=== PATIENT | female | born 1950 | race Caucasian/White ===

== ENCOUNTER → 2023-11-06 15:32 | Outpatient (REF) | payer MEDICARE, SELFPAY | LOC: PAVMRI 15:32 | PROVIDERS: ATTENDING PHYSICIAN Pain Medicine Interventional Pain Medicine; FAMILY PHYSICIAN Internal Medicine | DX: M54.16 Radiculopathy, lumbar region (principal) | CPT/HCPCS: 72148 ==

== ENCOUNTER → 2023-11-14 12:43 | Outpatient (REF) | payer MEDICARE, SELFPAY ==
[2023-11-14 15:35] LABS: ALT (SGPT) 19 U/L (0-35); AST (SGOT) 29 U/L (14-36); Albumin 3.8 g/dl (3.5-5.0); Alkaline Phosphatase 96 U/L (38-126); Blood Urea Nitrogen 12 mg/dl (7-17); Calcium 9.4 mg/dl (8.4-10.2); Carbon Dioxide 30 mmol/L (22-30); Chloride 104 mmol/L (98-107); Glucose 101 mg/dl (70-99); HDL Cholesterol 67 mg/dl; LDL Cholesterol, Calculated 46 mg/dl; Potassium 4.6 mmol/L (3.5-5.1); Sodium 138 mmol/L (135-145); Total Bilirubin 0.5 mg/dl (0.2-1.3); Total Cholesterol 162 mg/dl (50-199); Total Protein 6.1 g/dl (6.3-8.2); Triglyceride 247 mg/dl (10-149); Very Low Density Lipoprotein 49 mg/dl (0-30); eGFR > 60.00
[2023-11-15 09:39] LABS: Glycohemoglobin (HgbA1c) 5.7 % (4.0-5.6)
== END ==
LOC: HWLAB 12:43
PROVIDERS: ATTENDING PHYSICIAN Internal Medicine
DX: E78.5 Hyperlipidemia, unspecified (principal); R73.01 Impaired fasting glucose
CPT/HCPCS: 36415; 80053; 80061; 83036

== ENCOUNTER → 2024-01-17 13:20 | Outpatient (REF) | payer MEDICARE, SELFPAY | LOC: HWCARD 13:20 | PROVIDERS: ATTENDING PHYSICIAN Pain Medicine Interventional Pain Medicine; FAMILY PHYSICIAN Internal Medicine | DX: Z01.818 Encounter for other preprocedural examination (principal) | CPT/HCPCS: 93005 ==

== ENCOUNTER 2024-03-24 09:49 | Inpatient (IN) | payer MEDICARE, SELFPAY ==
[2024-02-28 13:32] VITALS: BMI 31.8
[2024-02-28 14:41] LABS: Hematocrit 38.4 % (37.0-47.0); Hemoglobin 12.7 g/dL (12.0-16.0); Mean Corp Hgb Conc. 33.1 g/dL (33.0-37.0); Mean Corpuscular Hgb 31.1 pg (27.0-31.0); Mean Corpuscular Volume 93.9 fL (81.0-99.0); Mean Platelet Volume 9.7 fL (7.4-10.4); Platelet Count 290 10^3/uL (130-400); Red Blood Cell Count 4.09 10^6/uL (4.20-5.40); Red Cell Dist. Width 14.4 % (11.5-14.5); White Blood Cell Count 6.7 10^3/uL (4.8-10.8)
[2024-02-28 15:08] LABS: ALT (SGPT) 17 U/L (0-35); AST (SGOT) 25 U/L (14-36); Albumin 4.1 g/dl (3.5-5.0); Alkaline Phosphatase 98 U/L (38-126); Blood Urea Nitrogen 16 mg/dl (7-17); Calcium 9.5 mg/dl (8.4-10.2); Carbon Dioxide 23 mmol/L (22-30); Chloride 103 mmol/L (98-107); Estimated Creatinine Clearance 54 ml/min; Glucose 75 mg/dl (70-99); Potassium 4.7 mmol/L (3.5-5.1); Sodium 139 mmol/L (135-145); Total Bilirubin 0.4 mg/dl (0.2-1.3); Total Protein 6.4 g/dl (6.3-8.2); eGFR > 60.00
[2024-02-29 08:50] LABS: Glycohemoglobin (HgbA1c) 5.8 % (4.0-5.6)
[2024-03-18 10:09] VITALS: BMI 31.8
[2024-03-18 10:31] VITALS: BMI 31.8
[2024-03-24] VITALS (13 sets, daily range): BP systolic 107–146; BP diastolic 59–89; PULSE 86; O2SAT 99
--- NOTE | 2024-03-24 08:00 | W.PN.ORTHO ---
Today's Communication / Plan
-
D/c when clinically stable.
Assessment
.
Distal Motor Intact: Yes
Dressing:
Small area of incisional bleeding towards center of dressing.
Assessment:
L hip OA s/p Ru SPARROW w/ Dr Caballero 03/24/24
- s/p R TSA, 06/2018, by Dr Dorantes
DVT prophylaxis - ASA, b/l venous foot pumps
Post-op nausea - continue anti-emetics as needed
HTN - + parameters - monitor BP
RBBB, PACs - monitor on tele
GERD and Hiatal hernia - continue PPI therapy BID
Peripheral neuropathy - consider Gabapentin or Lyrica
HLD
Schatzki�s ring w/ associated dysphagia
Diverticulosis w/ -itis 2021
Nephrolithiasis
Fatty liver disease
Old lacunar infarct of the right external capsule on head CT 09/2021
Chronic back pain 2* lumbar DDD/stenosis
H/o recurrent UTIs
Gout
Osteopenia
Anxiety
Depression
Prediabetes, A1c 5.8
Obesity, BMI 31.8
Daily alcohol, 1 drink reported daily
Cannabis dependence �
Has prophylactic Cefadroxil upon d/c
Plan
.
Surgery / Date: Ru SPARROW w/ Dr Caballero 03/24/24
DVT Prophylaxis: Aspirin
Activity:
Out of bed.
PT/OT
Discharge Plan: Home w/ VN
Subjective
.
.:
Patient resting comfortably in PACU.
L hip pain minimal and currently well tolerated.
Mild nausea - given IV Zofran.
Vital Signs and Labs
.
Vital Signs and Labs:
Lab Results
02/28/24 13:14
02/28/24 13:14
Physical Exam
-
HEENT: No pallor, cyanosis, or jaundice. Throat clear.
NECK: Supple. No JVD.
RESPIRATORY: Lungs clear to auscultation.
CVS: S1, S2 normal. RRR.�
ABDOMEN: Soft, non-tender. No distension. Obese.
EXTREMITIES: Strength equal, no calf pain with palpation/dorsiflexion. Calves soft.
JOB ESTIMATOR: AOx3. No focal deficits. talent acquisition coordinator grossly intact
[2024-03-24] MEDS: TYLENOL 650 MG PO ×3 (10:18→19:49)
[2024-03-24] MEDS: CELEBREX 200 MG PO (10:18)
[2024-03-24] MEDS: NORMOSOL-R/PLASMALYTE-A 1000 IV (14:34)
[2024-03-24] MEDS: ZOFRAN 4 MG IV (14:57)
[2024-03-24] MEDS: ROXICODONE 5 MG PO ×2 (15:19→17:40)
--- NOTE | 2024-03-24 16:15 | PTCARENOTE ---
Patient admitted from [facility] post left total hip replacement.The patient rates her pain at a 5 -6 out of 10.Neurovascular assessment is within normal limits and ongoing.Vital signs are stable.The left hip dressing has a small to moderate amount of
drainage on it.The patient is in her bed with the call sena in reach.
[2024-03-24] MEDS: ZYLOPRIM 300 MG PO (17:36)
[2024-03-24] MEDS: ASPIRIN 325 MG PO (17:36)
[2024-03-24] MEDS: FLORASTOR 250 MG PO (17:36)
[2024-03-24] MEDS: TYLENOL PO (17:37)
[2024-03-24] MEDS: VITAMIN B-12 1000 MCG PO (17:37)
[2024-03-24] MEDS: VITAMIN D3 (cholecalciferol) 125 MCG PO (17:37)
[2024-03-24] MEDS: LEXAPRO 10 MG PO (17:38)
[2024-03-24] MEDS: TOPROL XL 25 MG PO (17:38)
[2024-03-24] MEDS: DILAUDID 0.5 MG IV (19:48)
[2024-03-24] MEDS: PROTONIX 20 MG PO (19:49)
[2024-03-24] MEDS: ANCEF 5 IV (19:50)
[2024-03-24] MEDS: DECADRON 4 MG PO (19:50)
[2024-03-24] MEDS: COLACE 100 MG PO (19:52)
[2024-03-24] MEDS: SENOKOT PO (19:52)
[2024-03-24] MEDS: CRESTOR 10 MG PO (22:24)
[2024-03-24] MEDS: ROXICODONE 10 MG PO (22:24)
[2024-03-24] MEDS: BACTROBAN NASAL 1 GRAM NASAL (22:25)
[2024-03-24] MEDS: BACTROBAN 2% OINTMENT 1 APPLIC NASAL (22:26)
[2024-03-25] MEDS: TYLENOL PO (00:47)
[2024-03-25] MEDS: ROXICODONE 10 MG PO ×2 (02:36→08:02)
[2024-03-25 03:02] VITALS: BP 123/69
[2024-03-25] MEDS: ANCEF 5 IV (05:24)
[2024-03-25] MEDS: TYLENOL 650 MG PO ×2 (05:25→08:00)
[2024-03-25] MEDS: ASPIRIN 325 MG PO (07:58)
[2024-03-25] MEDS: PROTONIX 20 MG PO (07:58)
[2024-03-25] MEDS: SENOKOT 17.2 MG PO (07:58)
[2024-03-25] MEDS: CELEBREX 200 MG PO (07:58)
[2024-03-25] MEDS: FLORASTOR 250 MG PO (07:58)
[2024-03-25] MEDS: BACTROBAN 2% OINTMENT NASAL (07:59)
[2024-03-25] MEDS: ZYLOPRIM 300 MG PO (07:59)
[2024-03-25] MEDS: VITAMIN B-12 1000 MCG PO (08:00)
[2024-03-25] MEDS: COLACE 100 MG PO (08:00)
[2024-03-25] MEDS: DECADRON 4 MG PO (08:00)
[2024-03-25] MEDS: VITAMIN D3 (cholecalciferol) 125 MCG PO (08:01)
[2024-03-25] MEDS: TOPROL XL 25 MG PO (08:01)
[2024-03-25 08:07] VITALS: BP 123/69
[2024-03-25] MEDS: LIDOCAINE 4% PATCH 2 PATCH TOPICAL (09:08)
[2024-03-25] MEDS: FLEXERIL 10 MG PO (09:08)
--- NOTE | 2024-03-25 09:28 | W.PN.ORTHO ---
Today's Communication / Plan
-
Await PT and OT recs.
D/c later today if remaining clinically stable.
Assessment
.
Distal Motor Intact: Yes
Dressing:
Small areas of old incisional bleeding. Dressing changed and now C/D/I.
Assessment:
L hip OA s/p L ANDREWS w/ Dr Caballero 03/24/24
- s/p R TSA, 06/2018, by Dr Dorantes
DVT prophylaxis - ASA, b/l venous foot pumps
Post-op nausea - improved w/ Zofran x1 - has Zofran to be used upon d/c
HTN - + parameters - BPs stable
RBBB, PACs - rhythm stable on tele (NSR w/ RBBB)
GERD and Hiatal hernia - continue PPI therapy BID
Peripheral neuropathy - consider Gabapentin or Lyrica
HLD
Schatzki�s ring w/ associated dysphagia
Diverticulosis w/ -itis 2021
Nephrolithiasis
Fatty liver disease
Old lacunar infarct of the right external capsule on head CT 09/2021
Chronic back pain 2* lumbar DDD/stenosis
H/o recurrent UTIs
Gout
Osteopenia
Anxiety
Depression
Prediabetes, A1c 5.8
Obesity, BMI 31.8
Daily alcohol, 1 drink reported daily
Cannabis dependence �
Has prophylactic Cefadroxil upon d/c
Plan
.
Surgery / Date: Ru SPARROW w/ Dr Caballero 03/24/24
DVT Prophylaxis: Aspirin
Activity:
Out of bed.
PT/OT
Discharge Plan: Home w/ VN
Subjective
.
.:
Patient appearing to rest comfortably in her chair this morning.
Reports exacerbations of L hip pain overnight - pain meds adjusted.
Denies any other new significant complaints.
Eager for potential d/c today.
Vital Signs and Labs
.
Vital Signs and Labs:
Lab Results
02/28/24 13:14
02/28/24 13:14
Temp Pulse Resp BP Pulse Ox
98.6 F 87 18 123/69 96
03/25/24 08:07 03/25/24 08:07 03/25/24 08:07 03/25/24 08:07 03/25/24 08:07
Non-invasive Hgb result: 10.3
Physical Exam
-
HEENT: No pallor, cyanosis, or jaundice. Throat clear.
NECK: Supple. No JVD.
RESPIRATORY: Lungs clear to auscultation.
CVS: S1, S2 normal. RRR.�
ABDOMEN: Soft, non-tender. No distension. Obese.
EXTREMITIES: Strength equal, no calf pain with palpation/dorsiflexion. Calves soft.
SENIOR ACCOUNTING SPECIALIST: AOx3. No focal deficits. furnace mechanic grossly intact
[2024-03-25 09:55] VITALS: BP 122/66; BP 126/71; PULSE 87; O2SAT 96
--- NOTE | 2024-03-25 10:27 | W.DS.TRANS ---
DC Summary - Party Demonstrator
-
Discharge Instructions:
Sleep Apnea Risk Intermediate
Discharge Diagnosis/Procedures L hip OA s/p L ANDREWS w/ Dr Caballero 03/24/24
Diet Regular
Activity As tolerated,With Walker
Driving Restrictions Not until seen by your Dr
Bathing Restrictions OK to Shower
Other Services PT,VN
Wound Care Dressing to be removed 1 week post-surgery.
Instructions:
Stand-Alone Forms: Total Hip/Knee Replacement D/C
Changes to Home Medications: Yes
Discharge Medications:
DC Medications w/original date entered in [facility]
ascorbic acid (vitamin C) 500 mg tablet (Vitamin C) 500 mg PO BID Supplement 06/15/11
cranberry ocrj-Q-salryihh coag 450 mg-30 mg-50 million cell tablet (Lilwhonxz-Kavmvkbwa-Kimqppu C) 1 ea PO QPM Supplement 06/15/11
omeprazole 20 mg capsule,delayed release 20 mg PO BID GERD 02/16/17
escitalopram oxalate 10 mg tablet 10 mg PO QPM Mental Health/Anxiety 06/10/18
allopurinol 100 mg tablet 300 mg PO DAILY Gout 06/25/20
cyanocobalamin (vitamin B-12) 1,000 mcg tablet 1,000 mcg PO DAILY Supplement 06/25/20
cholecalciferol (vitamin D3) 125 mcg (5,000 unit) tablet (Vitamin D3) 125 mcg PO DAILY Supplement 03/18/24
metoprolol succinate 25 mg tablet,extended release 24 hr 25 mg PO DAILY Heart Disease/Condition 03/18/24
multivitamin 1 tab PO DAILY Supplement 03/18/24
mupirocin 2 % topical ointment 1 applic topical BID PROPHYLAXIS 03/18/24
rosuvastatin 10 mg tablet 10 mg PO HS High Cholesterol 03/18/24
sour banerjee extract 1,000 mg capsule (Tart Banerjee Extract) 2,000 mg PO DAILY Supplement 03/18/24
Saccharomyces boulardii 250 mg capsule 250 mg PO BID #14 caps 03/25/24
acetaminophen 500 mg tablet 1,000 mg (2 x 500 mg) PO Q6H #30 tabs 03/25/24
aspirin 325 mg tablet 325 mg PO DAILY #30 tabs 03/25/24
cefadroxil 500 mg capsule 500 mg PO BID #14 caps 03/25/24
celecoxib 100 mg capsule (Celebrex) 100 mg PO BID #30 caps 03/25/24
cyclobenzaprine 10 mg tablet 10 mg PO BID PRN Muscle Spasms #1 tab 03/25/24
dexamethasone 4 mg tablet 4 mg PO Q12H Anti-inflammatory #7 tabs 03/25/24
diphenhydramine HCl 25 mg capsule (Banophen) 25 mg PO HS PRN insomnia #0 caps 03/25/24
docusate sodium 100 mg capsule 100 mg PO BID #30 caps 03/25/24
lidocaine 4 % topical patch 2 patch topical DAILY #30 ea 03/25/24
lisinopril 5 mg tablet 5 mg PO DAILY PRN high blood pressure #1 tab 03/25/24
ondansetron HCl 4 mg tablet 4 mg PO Q6H PRN nausea and vomiting #30 tabs 03/25/24
oxycodone 5 mg tablet 5 - 10 mg (1 - 2 x 5 mg) PO Q6H PRN moderate-severe pain #30 tabs 03/25/24
sennosides 8.6 mg tablet (Senna Laxative) 17.2 mg (2 x 8.6 mg) PO BID #30 tabs 03/25/24
Home Medication Changes
Saccharomyces boulardii 250 mg capsule 250 mg PO BID #14 caps 03/25/24
acetaminophen 500 mg tablet 1,000 mg (2 x 500 mg) PO Q6H #30 tabs 03/25/24
aspirin 325 mg tablet 325 mg PO DAILY #30 tabs 03/25/24
cefadroxil 500 mg capsule 500 mg PO BID #14 caps 03/25/24
celecoxib 100 mg capsule (Celebrex) 100 mg PO BID #30 caps 03/25/24
cyclobenzaprine 10 mg tablet 10 mg PO BID PRN Muscle Spasms #1 tab 03/25/24
dexamethasone 4 mg tablet 4 mg PO Q12H Anti-inflammatory #7 tabs 03/25/24
docusate sodium 100 mg capsule 100 mg PO BID #30 caps 03/25/24
lidocaine 4 % topical patch 2 patch topical DAILY #30 ea 03/25/24
ondansetron HCl 4 mg tablet 4 mg PO Q6H PRN nausea and vomiting #30 tabs 03/25/24
oxycodone 5 mg tablet 5 - 10 mg (1 - 2 x 5 mg) PO Q6H PRN moderate-severe pain #30 tabs 03/25/24
sennosides 8.6 mg tablet (Senna Laxative) 17.2 mg (2 x 8.6 mg) PO BID #30 tabs 03/25/24
Pending Results: No
[2024-03-25 10:54] VITALS: BP 116/60; BP 124/68; PULSE 88; O2SAT 97
--- NOTE | 2024-03-25 11:04 | CM ---
Met with pt at bedside
pt reports she lives alone in a 2 story cottage; 3 steps to enter, FF set-up
Independent, active prior to admission
DME - rolling walker, cane, shower chair, raised toilet seat, toilet rails
SNF - no past hx
HH - [facility] in past
Has ride home with family member
PCP -Izabel Solis
Pharm - [facility]
PT recs - HH. Discussed with pt. Prefers [facility]. Referral sent in [facility]
Discussed IMM
Plan - home with [facility]
f - [phone]
[2024-03-25 11:10] VITALS: BP 123/66
== END 2024-03-25 12:44 | disposition home health service (06) | DRG 470 ==
LOC: 2 SOUTH 09:49
PROVIDERS: ADMITTING PHYSICIAN Specialist; FAMILY PHYSICIAN Internal Medicine
PROC: 0SRB0JA Replacement of Left Hip Joint with Synthetic Substitute, Uncemented, Open Approach (ICD-10-PCS; 2024-03-24)
DX: M16.12 Unilateral primary osteoarthritis, left hip (principal); E66.9 Obesity, unspecified; Z68.32 Body mass index [BMI] 32.0-32.9, adult; I10 Essential (primary) hypertension; I49.1 Atrial premature depolarization; I45.10 Unspecified right bundle-branch block; F12.20 Cannabis dependence, uncomplicated
CPT/HCPCS: 36415; 73502; 80053; 83036; 85027; 87070; 97110; 97116; 97162; 97166; 97535; C1713; C1776

== ENCOUNTER → 2024-08-07 09:40 | Outpatient (REF) | payer MEDICARE, SELFPAY ==
[2024-08-07 15:29] LABS: Urine Albumin Negative (Neg - Trace); Urine Bilirubin Negative (Negative); Urine Character Clear (Clear); Urine Color Yellow; Urine Glucose Negative (Negative); Urine Ketone Negative (Negative); Urine Leukocyte 1+ (Negative); Urine Nitrite Negative (Negative); Urine Occult Blood Negative (Negative); Urine Urobilinogen Negative (Neg - 1+)
[2024-08-07 15:41] LABS: Urine Squamous Cell 0-2 /LPF (Few)
[2024-08-07 15:42] LABS: Urine Bacteria Moderate (Negative); Urine Red Blood Cell 0-2 /HPF (0-2)
== END ==
LOC: HWLAB 09:40
PROVIDERS: ATTENDING PHYSICIAN Internal Medicine
DX: Z87.440 Personal history of urinary (tract) infections (principal); N39.0 Urinary tract infection, site not specified
CPT/HCPCS: 81003; 81015; 87086

== ENCOUNTER → 2024-08-14 13:20 | Outpatient (REF) | payer MEDICARE, SELFPAY ==
[2024-08-14 16:49] LABS: Urine Albumin 2+ (Neg - Trace); Urine Bilirubin Negative (Negative); Urine Character Clear (Clear); Urine Color Yellow; Urine Glucose Negative (Negative); Urine Ketone Negative (Negative); Urine Leukocyte 2+ (Negative); Urine Nitrite Negative (Negative); Urine Occult Blood Negative (Negative); Urine Urobilinogen 1+ (Neg - 1+)
[2024-08-14 16:59] LABS: Urine Hyaline Cast >15 /LPF (0-2); Urine Red Blood Cell 0-2 /HPF (0-2)
[2024-08-14 17:00] LABS: Urine Bacteria Moderate (Negative); Urine Mucus Few
== END ==
LOC: HWLAB 13:20
PROVIDERS: ATTENDING PHYSICIAN Internal Medicine
DX: R82.90 Unspecified abnormal findings in urine (principal)
CPT/HCPCS: 81003; 81015; 87077; 87086; 87186

== ENCOUNTER → 2024-08-22 12:46 | Outpatient (REF) | payer MEDICARE, SELFPAY ==
[2024-08-22 16:43] LABS: Urine Albumin 1+ (Neg - Trace); Urine Bilirubin Negative (Negative); Urine Character Clear (Clear); Urine Color Yellow; Urine Glucose Negative (Negative); Urine Ketone Negative (Negative); Urine Leukocyte 1+ (Negative); Urine Nitrite Negative (Negative); Urine Occult Blood Negative (Negative); Urine Urobilinogen Negative (Neg - 1+)
[2024-08-22 16:49] LABS: Urine Red Blood Cell 0-2 /HPF (0-2)
[2024-08-22 16:50] LABS: Urine Bacteria Few (Negative)
== END ==
LOC: HWLAB 12:46
PROVIDERS: ATTENDING PHYSICIAN Internal Medicine
DX: R82.90 Unspecified abnormal findings in urine (principal)
CPT/HCPCS: 81003; 81015

== ENCOUNTER 2024-08-25 08:52 | Day surgery (SDC) | payer MEDICARE, SELFPAY ==
[2024-08-04 13:59] LABS: % Basophils 0.6 % (0-2); % Eosinophils 1.3 % (0-6); % Immature Granulocytes 0.3 % (0-0.5); % Lymphocytes 37.5 % (20.5-51.1); % Monocytes 8.2 % (1.7-9.3); % Neutrophils 52.1 % (42.2-75.2); Absolute Eosinophils 0.1 10^3/uL (0-0.7); Absolute Lymphocytes 2.6 10^3/uL (1.2-3.4); Absolute Monocytes 0.6 10^3/uL (0.1-0.6); Absolute Neutrophils 3.7 10^3/uL (1.4-6.5); Hematocrit 41.7 % (37.0-47.0); Hemoglobin 13.3 g/dL (12.0-16.0); Mean Corp Hgb Conc. 31.9 g/dL (33.0-37.0); Mean Corpuscular Hgb 29.7 pg (27.0-31.0); Mean Corpuscular Volume 93.1 fL (81.0-99.0); Mean Platelet Volume 9.5 fL (7.4-10.4); Nucleated Red Blood Cells % 0 %; Platelet Count 253 10^3/uL (130-400); Red Blood Cell Count 4.48 10^6/uL (4.20-5.40); Red Cell Dist. Width 15.1 % (11.5-14.5)
[2024-08-04 14:20] VITALS: BMI 30.3
[2024-08-04 14:39] LABS: ALT (SGPT) 28 U/L (0-35); AST (SGOT) 40 U/L (14-36); Albumin 4.1 g/dl (3.5-5.0); Alkaline Phosphatase 97 U/L (38-126); Blood Urea Nitrogen 17 mg/dl (7-17); Calcium 9.9 mg/dl (8.4-10.2); Carbon Dioxide 29 mmol/L (22-30); Chloride 102 mmol/L (98-107); Estimated Creatinine Clearance 52 ml/min; Glucose 76 mg/dl (70-99); Potassium 4.1 mmol/L (3.5-5.1); Sodium 137 mmol/L (135-145); Total Bilirubin 0.5 mg/dl (0.2-1.3); Total Protein 6.5 g/dl (6.3-8.2); Uric Acid 1.6 mg/dl (2.5-6.2); eGFR > 60.00
[2024-08-04 15:18] VITALS: BMI 30.3
--- NOTE | 2024-08-04 15:44 | HPS.HSE ---
Family Physician
-
Family Physician: Izabel Slois
Chief Complaint
-
Advanced primary osteoarthritis of the right hip.
History of Present Illness
The patient is a 74-year-old female presenting today for advanced primary osteoarthritis of the right hip. The patient previously underwent an uncomplicated left total hip arthroplasty in February [address] Rick Caballero. She returns to
[facility] today with complaints of significant right hip pain associated with her osteoarthritis. She notes that her current right hip pain is greatly interfering with her activities of daily living and is overall impacting her quality of
life. She has tried and failed multiple conservative treatment measures in the past for her right hip pain. These conservative treatment measures include physical therapy, activity modification, self-directed therapeutic exercises, corticosteroid
injections, medical management with Tylenol, NSAIDs, and [place] as needed, and the application of ice and/or heat. Recent x-ray findings of the right hip demonstrated advanced osteoarthritis with flattening of the femoral head and significant
narrowing of the inner joint space. She was determined to be in need of a right total hip arthroplasty. She denies any current complaints today such as chest pain, shortness of breath, palpitations, nausea, vomiting, diarrhea, lightheadedness,
dizziness, cough, sore throat, or fever.
Medical History
Past Medical History
Past Medical History: Reports Other
Additional Past Medical History:
1. Osteoarthritis, status post left total hip arthroplasty, 02/2024, by Dr. Rick Caballero.
2. Hypertension.
3. Hyperlipidemia.
4. Right bundle branch block.
5. PACs, asymptomatic.
6. GERD.
7. Hiatal hernia.
8. Schatzki�s ring with associated dysphagia.
9. Diverticulosis w/ diverticulosis 2021.
10. Nephrolithiasis.
11. Fatty liver disease.
12. Old lacunar infarct of the right external capsule on head CT 09/2021.
13. Peripheral neuropathy.
14. Chronic back pain secondary to lumbar degenerative disc disease and stenosis.
15. History of recurrent UTIs.
16. Gout.
17. Osteopenia.
18. Anxiety.
19. Depression.
20. Insomnia.
21. Strep throat, 07/31/2024, improved with antibiotic therapy.
22. Prediabetes, A1c 5.7.
23. Obesity, BMI 30.3.
24. History of tobacco abuse.
25. Daily alcohol.
26. Cannabis dependence.
Past Surgical History: Reports Other
Additional Past Surgical History:
1. Left total hip arthroplasty, 02/2024, by Dr. Rick Caballero.
2. Right total shoulder arthroplasty, 06/2018, by Dr. Tanner Dorantes.
3. Right knee ACL and MCL repair.
4. Left thumb [facility] surgery.
5. Right great toe joint replacement.
6. Left great toe surgery.
7. Hysterectomy.
8. Tubal ligation.
9. D&C.
10. .
11. Tonsillectomy.
12. [place] teeth extraction.
13. LASIK eye surgery.
14. Bilateral cataract extraction.
15. Colonoscopy.
Social History
Tobacco: Former Smoker
Alcohol: Daily (She reports 1 alcoholic beverage per day. )
Drug: Marijuana
Personal:
Living: Alone (in a 2 story home. She has a first floor main setup. Her son will be helping her post-surgery. She plans on doing outpatient PT at [facility]. Her first appointment is the after her surgery. )
Family History
Family History: Not pertinent
Allergies / Home Medications
Allergy/Medication List:
Home medications:
1. Allopurinol 300 mg p.o. daily.
2. Ascorbic acid 500 mg p.o. twice a day.
3. Cholecalciferol 125 mcg p.o. daily.
4. Anwytbpkp-njqictufi-zvojkuq C 1 dose p.o. every evening.
5. Cyanocobalamin 1000 mcg p.o. daily.
6. Diphenhydramine HCl 25 mg p.o. at bedtime as needed.
7. Escitalopram 20 mg p.o. every evening.
8. Hydrocodone-Acetaminophen 5-325 mg, 1 tablet p.o. every 6 hours as needed.
9. Metoprolol Succinate 25 mg p.o. daily.
10. Multivitamin 1 tablet p.o. daily.
11. Naproxen 250 mg p.o. twice a day.
12. Omeprazole 20 mg p.o. twice a day.
13. Rosuvastatin 10 mg p.o. at bedtime.
14. Tart zafar extract 2000 mg p.o. daily.
Allergies: Augmentin. Thimerosal. [place] needles.
Review of Systems
-
A 12 point ROS was completed and negative except as noted: Yes
Physical Exam
Vital Signs
Blood pressure 125/57. Heart rate 69. Respirations 18. Pulse ox 100% on room air.
Height 5 feet, 1 inch. Weight 72.7 kg. BMI 30.3.
Physical Exam
General: Well Developed, Well Nourished and No Apparent Distress
HEENT: NormoCephalic, Moist mucous membranes and Atraumatic
Respiratory: Clear
Cardiac: Regular Rhythm
GI: Soft, Non Tender, Non Distended and Other (Obese. )
Musculoskeletal: Other (Right hip: Pain with internal rotation to 20 degrees, no significant pain with external rotation to 20 degrees, abduction to 30 degrees, and flexion to 110 degrees.)
Skin: Warm and Dry
Neuro: AO x 3 and Nonfocal/grossly intact
Laboratory Results
-
08/04/24 12:51
08/04/24 12:51
Laboratory Results
Total Bilirubin 0.5 mg/dl (0.2-1.3) 08/04/24 12:51
AST 40 U/L (14-36) H 08/04/24 12:51
ALT 28 U/L (0-35) 08/04/24 12:51
Alkaline Phosphatase 97 U/L (38-126) 08/04/24 12:51
Hemoglobin A1c 5.7.
MRSA screen negative.
Urinalysis with reflex urine culture 08/14/2024 pending.
EKG 08/04/2024: Normal sinus rhythm. Possible left atrial enlargement. Right bundle branch block.
Impression/Plan
-
CLEARANCES:
1. Primary medical, Dr. Maricel Solis, cleared pending repeat urinalysis 08/14/2024.
Primary medical phone number: [phone].
2. Dental, Dr. Helena Feliz, pending.
IMPRESSION/PLAN:
1. Advanced primary osteoarthritis of the right hip in need of a right total hip arthroplasty with Dr. Rick Caballero on 08/25/2024. The benefits and risks of the procedure have been explained to the patient. The patient understands these risks and
wishes to proceed.
2. DVT prophylaxis: Aspirin with bilateral venous compression devices.
3. Pain management: The patient prefers Oxycodone as needed for moderate-severe post-operative pain. We will also include Tylenol, Celebrex, Decadron, Lidocaine patches, and her home Cyclobenzaprine twice a day as needed. This pain regimen
reportedly worked well after her prior left total hip arthroplasty.
4. Early discharge: Given her stable comorbidities and recent previous left total hip arthroplasty without significant complications, the patient would be an ideal candidate for early discharge on 08/26/2024.
Patient's phone number: [phone].
Patient's contact (Ottoniel Hutton - Son): [phone].
[2024-08-05 10:51] LABS: Glycohemoglobin (HgbA1c) 5.7 % (4.0-5.6)
--- NOTE | 2024-08-22 11:52 | W.PN.UPDATE ---
Update Note
Progress Note Update
The patient was diagnosed with a UTI earlier this week through a UA w/ culture ordered per PCP.
Pt at that time reported urinary urgency with irritation.
PCP had Rx Levaquin to be taken daily for 3 days. Last dose was today. Pt did note an overall improvement in her symptoms w/ abx therapy.
Per PCP, a repeat UA prior to surgery would be nice but was not mandatory.
A script was sent over to lab. Pt will try and get this done this afternoon.
Given the upcoming weekend, we will attempt to look out for results the morning of her procedure.
Can proceed as planned.
[2024-08-25] VITALS (21 sets, daily range): BP systolic 83–125; BP diastolic 51–74; PULSE 68–69; O2SAT 95–97
[2024-08-25] MEDS: TYLENOL 650 MG PO ×3 (09:15→23:06)
[2024-08-25] MEDS: BACTROBAN NASAL 1 GRAM NASAL (09:15)
[2024-08-25] MEDS: CELEBREX 200 MG PO (09:15)
[2024-08-25] MEDS: NORMOSOL-R/PLASMALYTE-A 1000 IV ×2 (09:30→14:07)
--- NOTE | 2024-08-25 13:07 | W.DS.TRANS ---
DC Summary - K9 Handler
-
Discharge Instructions:
Sleep Apnea Risk Low
Discharge Diagnosis/Procedures R ANDREWS 08/25/24
Diet As tolerated
Activity With Walker
Driving Restrictions No driving
Bathing Restrictions OK to Shower
Instructions:
Stand-Alone Forms: Total Hip/Knee Replacement D/C
Changes to Home Medications: Yes
Discharge Medications:
DC Medications w/original date entered in [facility]
ascorbic acid (vitamin C) 500 mg tablet (Vitamin C) 500 mg PO BID Supplement 06/15/11
cranberry ksnk-J-vuyyijju coag 450 mg-30 mg-50 million cell tablet (Lpubkizsq-Zwejudeun-Lqbslni C) 1 ea PO QPM Supplement 06/15/11
omeprazole 20 mg capsule,delayed release 20 mg PO BID GERD 02/16/17
escitalopram oxalate 10 mg tablet 20 mg PO QPM Mental Health/Anxiety 06/10/18
allopurinol 100 mg tablet 300 mg PO DAILY Gout 06/25/20
cyanocobalamin (vitamin B-12) 1,000 mcg tablet 1,000 mcg PO DAILY Supplement 06/25/20
cholecalciferol (vitamin D3) 125 mcg (5,000 unit) tablet (Vitamin D3) 125 mcg PO DAILY Supplement 03/18/24
metoprolol succinate 25 mg tablet,extended release 24 hr 25 mg PO DAILY Heart Disease/Condition 03/18/24
multivitamin 1 tab PO DAILY Supplement 03/18/24
rosuvastatin 10 mg tablet 10 mg PO HS High Cholesterol 03/18/24
sour banerjee extract 1,000 mg capsule (Tart Banerjee Extract) 2,000 mg PO DAILY Supplement 03/18/24
cyclobenzaprine 10 mg tablet 10 mg PO BID PRN Muscle Spasms #1 tab 03/25/24
diphenhydramine HCl 25 mg capsule (Banophen) 25 mg PO HS PRN insomnia #0 caps 03/25/24
mupirocin 2 % topical ointment 1 applic intranasal BID #1 tube 08/04/24
acetaminophen 325 mg tablet (Tylenol) 650 mg (2 x 325 mg) PO QID #1 tab 08/25/24
aspirin 325 mg tablet 325 mg PO DAILY blood clot prevention #1 tab 08/25/24
celecoxib 200 mg capsule 200 mg PO DAILY Anti-inflammatory #14 caps 08/25/24
dexamethasone 4 mg tablet 4 mg PO BID inflammation #6 tabs 08/25/24
docusate sodium 100 mg capsule (Colace) 100 mg PO BID stool softner #1 cap 08/25/24
gabapentin 300 mg capsule 300 mg PO HS sleep/pain #10 caps 08/25/24
magnesium hydroxide 400 mg/5 mL oral suspension (Milk of Magnesia) 30 ml PO HS PRN Constipation #1 mL 08/25/24
ondansetron 4 mg disintegrating tablet 4 mg PO Q6H PRN n/v #20 tabs 08/25/24
oxycodone 5 mg tablet 5 mg PO Q6H PRN 1 tab moderate pain, 2 tabs severe pain #30 tabs 08/25/24
sennosides 8.6 mg tablet (Senokot) 17.2 mg (2 x 8.6 mg) PO BID laxative #2 tabs 08/25/24
Home Medication Changes
mupirocin 2 % topical ointment 1 applic intranasal BID #1 tube 08/04/24
acetaminophen 325 mg tablet (Tylenol) 650 mg (2 x 325 mg) PO QID #1 tab 08/25/24
aspirin 325 mg tablet 325 mg PO DAILY blood clot prevention #1 tab 08/25/24
celecoxib 200 mg capsule 200 mg PO DAILY Anti-inflammatory #14 caps 08/25/24
dexamethasone 4 mg tablet 4 mg PO BID inflammation #6 tabs 08/25/24
docusate sodium 100 mg capsule (Colace) 100 mg PO BID stool softner #1 cap 08/25/24
gabapentin 300 mg capsule 300 mg PO HS sleep/pain #10 caps 08/25/24
magnesium hydroxide 400 mg/5 mL oral suspension (Milk of Magnesia) 30 ml PO HS PRN Constipation #1 mL 08/25/24
ondansetron 4 mg disintegrating tablet 4 mg PO Q6H PRN n/v #20 tabs 08/25/24
oxycodone 5 mg tablet 5 mg PO Q6H PRN 1 tab moderate pain, 2 tabs severe pain #30 tabs 08/25/24
sennosides 8.6 mg tablet (Senokot) 17.2 mg (2 x 8.6 mg) PO BID laxative #2 tabs 08/25/24
Pending Results: No
--- NOTE | 2024-08-25 14:39 | CM ---
Rcd call from [facility]
Referral made pre-operatively - requesting updated clinicals, PT/OT evals when available
[2024-08-25] MEDS: ROXICODONE 5 MG PO ×2 (15:31→20:09)
[2024-08-25] MEDS: TYLENOL PO (19:31)
--- NOTE | 2024-08-25 19:46 | PTCARENOTE ---
Received patient from pacu around 1730 via bed in stable condition. Dressing to Right hip with scant bloody drainage. +sensation +movement to rle. Patient oriented to room. Call sena in reach.
[2024-08-25] MEDS: COLACE 100 MG PO (19:58)
[2024-08-25] MEDS: ASPIRIN 325 MG PO (19:58)
[2024-08-25] MEDS: PROTONIX 40 MG PO (19:58)
[2024-08-25] MEDS: SENOKOT 17.2 MG PO (19:58)
[2024-08-25] MEDS: LEXAPRO 20 MG PO (19:59)
[2024-08-25] MEDS: ANCEF 5 IV (19:59)
[2024-08-25] MEDS: BACTROBAN 2% OINTMENT 1 APPLIC NASAL (20:03)
[2024-08-25] MEDS: NEURONTIN 300 MG PO (22:34)
[2024-08-25] MEDS: CRESTOR 10 MG PO (22:34)
[2024-08-25] MEDS: BENADRYL 25 MG PO (22:34)
[2024-08-25] MEDS: TORADOL 15 MG IV (22:35)
[2024-08-25] MEDS: DECADRON 4 MG IV (22:38)
[2024-08-26 03:05] VITALS: BP 129/69
[2024-08-26] MEDS: ANCEF 5 IV (03:22)
[2024-08-26] MEDS: TYLENOL 650 MG PO ×4 (03:22→16:14)
[2024-08-26] MEDS: DECADRON 4 MG IV (06:00)
[2024-08-26] MEDS: TORADOL 15 MG IV (06:00)
[2024-08-26 07:10] VITALS: BP 108/61
[2024-08-26] MEDS: SENOKOT 17.2 MG PO (08:02)
[2024-08-26] MEDS: COLACE 100 MG PO (08:02)
[2024-08-26] MEDS: ZYLOPRIM 300 MG PO (08:02)
[2024-08-26] MEDS: ASPIRIN 325 MG PO (08:02)
[2024-08-26] MEDS: PROTONIX 40 MG PO (08:03)
[2024-08-26] MEDS: TOPROL XL 25 MG PO (08:03)
[2024-08-26] MEDS: CELEBREX 200 MG PO (08:03)
[2024-08-26] MEDS: BACTROBAN 2% OINTMENT 1 APPLIC NASAL (08:04)
[2024-08-26] MEDS: ROXICODONE 5 MG PO (08:04)
--- NOTE | 2024-08-26 08:54 | W.PN.ORTHO ---
Today's Communication / Plan
-
Early D/c
Assessment
.
Distal Motor Intact: Yes
Dressing:
Clean, dry and intact.
Assessment:
Hx CVA-ASA + Crestor continued uninterrupted-BP well controlled
Plan
.
Surgery / Date: R ANDREWS 08/25/24 Dr. Caballero
DVT Prophylaxis: Aspirin
Activity:
Out of bed.
PT/OT
Discharge Plan: Home w/ Outpatient PT
Subjective
.
.:
Patient resting comfortably.
Vital Signs and Labs
.
Vital Signs and Labs:
Lab Results
08/04/24 12:51
08/04/24 12:51
Temp Pulse Resp BP Pulse Ox
97.7 F 58 18 138/69 97
08/26/24 07:10 08/26/24 08:03 08/26/24 07:10 08/26/24 08:03 08/26/24 07:10
Non-invasive Hgb result: 11.3
Physical Exam
-
HEENT: No pallor, cyanosis, or jaundice. Throat clear.
NECK: Supple. No JVD.
RESPIRATORY: Lungs clear to auscultation.
CVS: S1, S2 normal. RRR.� No murmur, rub or gallop.
ABDOMEN: Soft, non-tender. No distension. BS+/normal.
EXTREMITIES: strength equal, no calf pain with palpation
DIRECT MARKETING REPRESENTATIVE: AOx3. No focal deficits. dispatcher automobile rental grossly intact
[2024-08-26 09:25] VITALS: BP 130/73; BP 140/86; PULSE 85
--- NOTE | 2024-08-26 09:44 | CM ---
CM reviewed medical records. CM met with patient in room. Patient lives alone in a two story home. Patent stated that she has a first floor set up. Patient's son is going to provide supervision. Patient does not have a history of SNF. Patient had
been known to [facility]. Patient has a walker, raised toilet seat, a grab bars and shower chair. Patient is active with her PCP. Patient uses [facility] for medication services.
CM will await PT/OT evaluations for further discharge planning needs.
Plan: home with [facility], pending PT evaluation
[2024-08-26] MEDS: ProAmatine 5 MG PO ×2 (10:03→12:59)
--- NOTE | 2024-08-26 10:11 | CM ---
Addendum entered by Francisca Montejo RN 08/26/24 11:23:
[facility]

Original Note:
CM sent referral via [facility] to [facility].
[2024-08-26] MEDS: NORMOSOL-R/PLASMALYTE-A 1000 IV (10:18)
[2024-08-26 11:10] VITALS: BP 120/56
[2024-08-26 14:49] VITALS: BP 112/49; PULSE 93; O2SAT 98
[2024-08-26 15:30] VITALS: BP 102/53
== END 2024-08-26 16:30 | disposition home health service (06) | DRG 470 ==
LOC: SDS 08:52
PROVIDERS: ATTENDING PHYSICIAN Specialist; FAMILY PHYSICIAN Internal Medicine
PROC: 0SR90JA Replacement of Right Hip Joint with Synthetic Substitute, Uncemented, Open Approach (ICD-10-PCS; 2024-08-25)
DX: M16.11 Unilateral primary osteoarthritis, right hip (principal); I10 Essential (primary) hypertension; E78.5 Hyperlipidemia, unspecified; I45.10 Unspecified right bundle-branch block; K21.9 Gastro-esophageal reflux disease without esophagitis; K44.9 Diaphragmatic hernia without obstruction or gangrene; K76.0 Fatty (change of) liver, not elsewhere classified; G62.9 Polyneuropathy, unspecified; G89.29 Other chronic pain; M51.369 Other intervertebral disc degeneration, lumbar region without mention of lumbar back pain or lower extremity pain; M10.9 Gout, unspecified; M85.80 Other specified disorders of bone density and structure, unspecified site; F41.9 Anxiety disorder, unspecified; F12.20 Cannabis dependence, uncomplicated; F32.A Depression, unspecified; G47.00 Insomnia, unspecified; E66.9 Obesity, unspecified; R73.03 Prediabetes; Z96.642 Presence of left artificial hip joint; Z96.611 Presence of right artificial shoulder joint; Z87.440 Personal history of urinary (tract) infections; Z68.30 Body mass index [BMI] 30.0-30.9, adult; Z87.891 Personal history of nicotine dependence; Z87.442 Personal history of urinary calculi; Z87.19 Personal history of other diseases of the digestive system; Z86.73 Personal history of transient ischemic attack (TIA), and cerebral infarction without residual deficits
CPT/HCPCS: 27130; 36415; 73502; 80053; 83036; 84550; 85025; 87070; 93005; 97110; 97116; 97162; 97167; 97530; 97535; C1713; C1776

== ENCOUNTER → 2025-03-19 13:32 | Outpatient (REF) | payer MEDICARE, SELFPAY | LOC: HWRAD 13:32 | PROVIDERS: ATTENDING PHYSICIAN Internal Medicine; FAMILY PHYSICIAN Internal Medicine | DX: Z87.891 Personal history of nicotine dependence (principal) | CPT/HCPCS: 71271 ==

== ENCOUNTER → 2025-05-07 09:32 | Outpatient (REF) | payer MEDICARE, SELFPAY | LOC: HWRAD 09:32 | PROVIDERS: ATTENDING PHYSICIAN Internal Medicine | DX: M81.0 Age-related osteoporosis without current pathological fracture (principal); Z12.31 Encounter for screening mammogram for malignant neoplasm of breast | CPT/HCPCS: 77063; 77067 ==